=== PATIENT | female | born 1955 | race Caucasian/White ===

== ENCOUNTER → 2020-09-02 | Outpatient (RCR) | payer MEDICARE, OTHER | LOC: OT 09-01 12:00 | PROVIDERS: ATTEND Specialist | DX: M75.02 Adhesive capsulitis of left shoulder (principal); M75.82 Other shoulder lesions, left shoulder ==

== ENCOUNTER 2020-09-30 14:00 | Outpatient (RCR) | payer MEDICARE, OTHER | END 2020-10-03 | LOC: OT 14:00 | PROVIDERS: ATTEND Specialist | DX: M75.02 Adhesive capsulitis of left shoulder (principal); M75.82 Other shoulder lesions, left shoulder ==

== ENCOUNTER 2020-10-14 13:58 | Outpatient (RCR) | payer MEDICARE, OTHER | END 2020-11-03 | LOC: OT 13:58 | PROVIDERS: ATTEND Specialist | DX: M75.82 Other shoulder lesions, left shoulder (principal); M75.02 Adhesive capsulitis of left shoulder ==